=== PATIENT | male | born 1940 | race Caucasian/White ===

== ENCOUNTER 2016-08-20 09:43 | Emergency (ER) | payer OTHER ==
[~2016-08-20] VITALS: Ht 167.6 cm; Wt 71.7 kg
[~2016-08-20 09:43] MED LIST: CYCLOBENZAPRINE10 MG PO; HIGH BLOOD PRESSURE; HYDROCODONE BIT1 T11 PO; NORVASC10 MG PO; PRAVASTATIN SOD20 MG PO
[2016-08-20] MEDS ORDERED: OMEGA-3-ACID ETH1 GM PO (09:54)
[2016-08-20] MEDS ORDERED: GOOD NEIGHBOR150 MG PO (09:54)
[2016-08-20] MEDS ORDERED: FLUTICASON0.05 MG/AC NAS (09:54)
[2016-08-20] MEDS ORDERED: MELOXICAM15 MG PO (09:55)
[2016-08-20] MEDS ORDERED: ANTIBIOTIC O500 U/GM T (09:59)
== END 2016-08-20 10:20 | disposition home or self-care (01) ==
LOC: ED 09:43
DX: S80.862A Insect bite (nonvenomous), left lower leg, initial encounter (principal); R03.0 Elevated blood-pressure reading, without diagnosis of hypertension; Z79.899 Other long term (current) drug therapy; W57.XXXA Bitten or stung by nonvenomous insect and other nonvenomous arthropods, initial encounter; Y93.9 Activity, unspecified; Y92.9 Unspecified place or not applicable; Y99.9 Unspecified external cause status